=== PATIENT | male | born 1935 | race Caucasian/White ===

== ENCOUNTER 2023-01-17 09:12 | Emergency (ER) | payer MEDICARE, OTHER ==
[2023-01-17 11:08] LABS: SARS-CoV-2 NAA Rapid Test DETECTED (NotDetected)
== END 2023-01-17 11:20 | disposition home or self-care (01) ==
LOC: CSHERS 09:12
DX: U07.1 COVID-19 (principal); E78.00 Pure hypercholesterolemia, unspecified; I10 Essential (primary) hypertension
CPT/HCPCS: 0240U; 71045

== ENCOUNTER 2025-04-30 04:02 | Inpatient (IN) | payer OTHER ==
[2025-04-30 04:48] LABS: Troponin I 0.024 ng/mL (< 0.028)
[2025-04-30 05:05] LABS: Ovalocytes SLIGHT = 2-5 cells (100X) (0-1/hpf); Platelet Adequacy Comment Appears Adequate; Poikilocytosis MARKED = >30 cells (100X) (0-5/hpf)
[2025-04-30 05:06] LABS: #Basophils Less than 0.03 10x3/uL (0.0-0.2); #Eosinophils 0.15 10x3/uL (0.0-0.5); #Monocytes 1.19 10x3/uL (0.0-1.1); #Neutrophils 5.07 10x3/uL (1.5-8.4); %Basophils 0.1 % (0.0-2.0); %Eosinophils 2.1 % (0.0-6.0); %Lymphocytes 11.6 % (18.0-47.0); %Monocytes 16.4 % (0.0-10.0); %Neutrophils 69.7 % (40.0-75.0); Hematocrit 28.1 % (38.8-50.0); Hemoglobin 9.3 g/dL (13.5-17.5); Mean Corpuscular Hemoglobin 33.1 pg (27.0-33.0); Mean Corpuscular Volume 100.0 fL (81.2-95.1); Red Blood Cell (RBC) Count 2.81 10x6/uL (4.32-5.72); White Blood Cell (WBC) Count 7.27 10x3/uL (3.5-10.5)
[2025-04-30 05:08] LABS: ALT (SGPT) 17 U/L (Less than 45); AST (SGOT) 33 U/L (11-34); Albumin 3.9 g/dL (3.1-4.5); Alkaline Phosphatase 59 U/L (40-110); Anion Gap 14 mmol/L (10-20); BUN (Urea Nitrogen) 18 mg/dL (8.4-25.7); Bilirubin, Total 1.1 mg/dL (0.3-1.2); Calc. Creatinine Clearance 0 mL/min (70-130); Calcium 9.3 mg/dL (7.8-10.44); Carbon Dioxide 22 mmol/L (23-31); Chloride 109 mmol/L (98-107); Globulin 2.9 g/dL (2.4-3.5); Glucose 132 mg/dL (83-110); Potassium 3.6 mmol/L (3.5-5.1); Sodium 141 mmol/L (136-145)
[2025-04-30] MEDS ORDERED: Cefepime 2 GM VIAL ONE (05:41)
[2025-04-30 05:52] LABS: Platelet Count 114 10x3/uL (130-400)
[2025-04-30 05:56] LABS: Actual Bicarbonate (HCO3v) 22.3 mEq/L (22-28); Analyzer IN Cardio CS ER; Base Excess -0.9 mEq/L (-2 - +2); Calcium, Ionized (venous) 1.12 mmol/L (1.16-1.32); Chloride (VBG) 108 mmol/L (98-106); Hematocrit-VBG 30 % (42.0-52.0); Hemoglobin (Hb) 10.1 g/dL (12.6-17.4); Potassium (VBG) 3.52 mmol/L (3.70-5.30); Puncture Site Other Site; RapidComm Collect By Lab; Sodium 139 mmol/L (133-146)
[2025-04-30] MEDS ORDERED: Senokot S 8.6-50 MG TAB PO PRN (07:53)
[2025-04-30] MEDS ORDERED: Furosemide 20 MG TAB PO SCH (09:00)
[2025-04-30] MEDS: Azithromycin 250 MG TAB PO SCH (09:22)
[2025-04-30] MEDS: Aspirin 81 mg Enteric Coated Tablet PO SCH (09:45)
[2025-04-30] MEDS: Carvedilol 3.125 MG TAB PO SCH (09:45)
[2025-04-30] MEDS: Furosemide 40 MG (4 mL) VIAL SLOW IVP SCH (09:45)
[2025-04-30] MEDS: Apixaban 2.5 MG TAB PO SCH (09:45)
[2025-04-30] MEDS: cefTRIAXone\\ROCEPHIN 1 GM in Sodium Chloride 0.9% 100 ML IVPB SCH (10:00)
[2025-04-30] MEDS ORDERED: cefTRIAXone (ROCEPHIN) 1 GM VIAL ONE (10:05)
[2025-04-30] MEDS ORDERED: Azithromycin 250 MG TAB ONE (10:08)
[2025-04-30] MEDS ORDERED: Furosemide 40 MG (4 mL) VIAL ONE (10:08)
[2025-04-30] MEDS ORDERED: Aspirin Chewable 81 MG TAB ONE (10:09)
[2025-04-30] MEDS ORDERED: Apixaban 5 MG TAB ONE (10:09)
[2025-04-30] MEDS ORDERED: Carvedilol 6.25 MG TAB ONE (10:15)
[2025-04-30 14:13] VITALS: BMI 20.7
[2025-04-30 17:25] LABS: Glucose, Urine (Dipstick) Normal (Negative); Leukocyte Negative (Negative); Protein, Urine (Dipstick) 30 mg/dl (Neg-Trace); Specific Gravity, Urine 1.015 (1.005-1.030)
[2025-04-30 17:35] LABS: Bacteria/HPF None Seen HPF (None Seen); RBC/HPF None Seen HPF (0-3); WBC/HPF None Seen HPF (0-3)
[2025-04-30] MEDS: Rosuvastatin 20 MG TAB PO SCH (20:48)
[2025-05-01] MEDS: Acetaminophen 325 MG TAB PO PRN (00:11)
[2025-05-01] MEDS: Melatonin 3 MG TAB PO PRN (00:12)
[2025-05-01 05:32] LABS: Albumin 3.4 g/dL (3.1-4.5); Anion Gap 15 mmol/L (10-20); BUN (Urea Nitrogen) 18 mg/dL (8.4-25.7); BUN/Creatinine Ratio 20.69; Calc. Creatinine Clearance 51 mL/min (70-130); Calcium 8.9 mg/dL (7.8-10.44); Carbon Dioxide 22 mmol/L (23-31); Chloride 109 mmol/L (98-107); Glucose 107 mg/dL (83-110); Potassium 3.2 mmol/L (3.5-5.1); Sodium 143 mmol/L (136-145)
[2025-05-01 05:35] LABS: Platelet Count 109 10x3/uL (150-450)
[2025-05-01 05:36] LABS: #Basophils 0.03 10x3/uL (0.0-0.2); #Eosinophils 0.09 10x3/uL (0.0-0.5); #Monocytes 0.92 10x3/uL (0.0-1.1); #Neutrophils 3.92 10x3/uL (1.5-8.4); %Basophils 0.5 % (0.0-2.0); %Eosinophils 1.5 % (0.0-6.0); %Lymphocytes 14.6 % (18.0-47.0); %Monocytes 15.8 % (0.0-10.0); %Neutrophils 67.3 % (40.0-75.0); Hematocrit 26.2 % (38.8-50.0); Hemoglobin 8.8 g/dL (13.5-17.5); Mean Corpuscular Hemoglobin 33.1 pg (27.0-33.0); Mean Corpuscular Volume 98.5 fL (81.2-95.1); Red Blood Cell (RBC) Count 2.66 10x6/uL (4.32-5.72); White Blood Cell (WBC) Count 5.83 10x3/uL (3.5-10.5)
[2025-05-01] MEDS ORDERED: Electrolyte Replacement Protocol 1 EACH FS PRN (09:30)
[2025-05-01] MEDS: Furosemide 20 MG TAB PO SCH (10:09)
[2025-05-01 16:45] LABS: Magnesium 2.2 mg/dL (1.6-2.6); Potassium 3.8 mmol/L (3.5-5.1)
[2025-05-01] MEDS: Sacubitril 49 MG/Valsartan 51 MG TABLET PO SCH (21:35)
[2025-05-01] MEDS: Ezetimibe 10 MG TAB PO SCH (21:35)
[2025-05-02] MEDS: Allopurinol 300 MG TAB PO SCH (09:30)
[2025-05-03 07:47] LABS: Anion Gap 12 mmol/L (10-20); BUN (Urea Nitrogen) 19 mg/dL (8.4-25.7); Calc. Creatinine Clearance 51 mL/min (70-130); Calcium 8.9 mg/dL (7.8-10.44); Carbon Dioxide 26 mmol/L (23-31); Chloride 108 mmol/L (98-107); Glucose 120 mg/dL (83-110); Potassium 3.5 mmol/L (3.5-5.1); Sodium 142 mmol/L (136-145)
[2025-05-03 08:01] LABS: #Basophils 0.03 10x3/uL (0.0-0.2); #Eosinophils 0.18 10x3/uL (0.0-0.5); #Monocytes 0.97 10x3/uL (0.0-1.1); #Neutrophils 4.28 10x3/uL (1.5-8.4); %Basophils 0.5 % (0.0-2.0); %Eosinophils 2.8 % (0.0-6.0); %Lymphocytes 16.1 % (18.0-47.0); %Monocytes 14.9 % (0.0-10.0); %Neutrophils 65.5 % (40.0-75.0); Hematocrit 27.0 % (38.8-50.0); Hemoglobin 8.9 g/dL (13.5-17.5); Mean Corpuscular Hemoglobin 32.5 pg (27.0-33.0); Mean Corpuscular Volume 98.5 fL (81.2-95.1); Platelet Count 137 10x3/uL (150-450); Red Blood Cell (RBC) Count 2.74 10x6/uL (4.32-5.72); White Blood Cell (WBC) Count 6.52 10x3/uL (3.5-10.5)
[2025-05-03] MEDS ORDERED: Potassium Bicarbonate/Cit Ac 20 MEQ TAB PO SCH (10:00)
[2025-05-03] MEDS: Potassium Chloride 20 MEQ in Premix 1 BAG IVPB SCH (11:01)
[2025-05-03 16:26] LABS: Potassium 3.8 mmol/L (3.5-5.1)
[2025-05-04 05:58] LABS: #Basophils 0.03 10x3/uL (0.0-0.2); #Eosinophils 0.22 10x3/uL (0.0-0.5); #Monocytes 0.74 10x3/uL (0.0-1.1); #Neutrophils 2.93 10x3/uL (1.5-8.4); %Basophils 0.6 % (0.0-2.0); %Eosinophils 4.5 % (0.0-6.0); %Lymphocytes 19.8 % (18.0-47.0); %Monocytes 15.1 % (0.0-10.0); %Neutrophils 59.8 % (40.0-75.0); Hematocrit 27.6 % (38.8-50.0); Hemoglobin 9.0 g/dL (13.5-17.5); Mean Corpuscular Hemoglobin 31.9 pg (27.0-33.0); Mean Corpuscular Volume 97.9 fL (81.2-95.1); Platelet Count 129 10x3/uL (150-450); Red Blood Cell (RBC) Count 2.82 10x6/uL (4.32-5.72); White Blood Cell (WBC) Count 4.90 10x3/uL (3.5-10.5)
[2025-05-04 06:13] LABS: Anion Gap 10 mmol/L (10-20); BUN (Urea Nitrogen) 13 mg/dL (8.4-25.7); Calc. Creatinine Clearance 53 mL/min (70-130); Calcium 8.9 mg/dL (7.8-10.44); Carbon Dioxide 25 mmol/L (23-31); Chloride 109 mmol/L (98-107); Glucose 102 mg/dL (83-110); Magnesium 2.1 mg/dL (1.6-2.6); Potassium 3.5 mmol/L (3.5-5.1); Sodium 140 mmol/L (136-145)
[2025-05-04] MEDS: Aspirin Chewable 81 MG TAB PO SCH (08:41)
[2025-05-04] MEDS: Potassium Chloride 20 MEQ in Premix 1 BAG IVPB SCH (10:08)
[2025-05-05 05:42] LABS: #Basophils 0.03 10x3/uL (0.0-0.2); #Eosinophils 0.25 10x3/uL (0.0-0.5); #Monocytes 0.73 10x3/uL (0.0-1.1); #Neutrophils 3.76 10x3/uL (1.5-8.4); %Basophils 0.5 % (0.0-2.0); %Eosinophils 4.3 % (0.0-6.0); %Lymphocytes 17.7 % (18.0-47.0); %Monocytes 12.5 % (0.0-10.0); %Neutrophils 64.5 % (40.0-75.0); Hematocrit 27.6 % (38.8-50.0); Hemoglobin 9.3 g/dL (13.5-17.5); Mean Corpuscular Hemoglobin 32.6 pg (27.0-33.0); Mean Corpuscular Volume 96.8 fL (81.2-95.1); Platelet Count 137 10x3/uL (150-450); Red Blood Cell (RBC) Count 2.85 10x6/uL (4.32-5.72); White Blood Cell (WBC) Count 5.83 10x3/uL (3.5-10.5)
[2025-05-05 05:59] LABS: Anion Gap 10 mmol/L (10-20); BUN (Urea Nitrogen) 13 mg/dL (8.4-25.7); Calc. Creatinine Clearance 60 mL/min (70-130); Calcium 8.9 mg/dL (7.8-10.44); Carbon Dioxide 23 mmol/L (23-31); Chloride 108 mmol/L (98-107); Glucose 101 mg/dL (83-110); Magnesium 2.1 mg/dL (1.6-2.6); Potassium 3.6 mmol/L (3.5-5.1); Sodium 137 mmol/L (136-145)
[2025-05-05 16:28] VITALS: BP 129/73; TEMP 98.7
== END 2025-05-05 16:35 | disposition home or self-care (01) | DRG 193 ==
LOC: CSHERS 04:02 → CSHERHOLD 07:42 → CSHICU 13:58 → CSHTELE 19:28
PROVIDERS: ADMIT Student in an Organized Health Care Education/Training Program; ATTEND Physician Assistant
DX: J18.9 Pneumonia, unspecified organism (principal); I50.23 Acute on chronic systolic (congestive) heart failure; J96.01 Acute respiratory failure with hypoxia; I25.10 Atherosclerotic heart disease of native coronary artery without angina pectoris; Z95.1 Presence of aortocoronary bypass graft; I48.91 Unspecified atrial fibrillation; Z95.0 Presence of cardiac pacemaker; Z95.2 Presence of prosthetic heart valve; Z91.148 Patient's other noncompliance with medication regimen for other reason; I11.0 Hypertensive heart disease with heart failure; D69.6 Thrombocytopenia, unspecified; R13.12 Dysphagia, oropharyngeal phase; Z95.5 Presence of coronary angioplasty implant and graft; M10.9 Gout, unspecified; E78.00 Pure hypercholesterolemia, unspecified; Z79.01 Long term (current) use of anticoagulants; Z79.899 Other long term (current) drug therapy; Z79.82 Long term (current) use of aspirin
CPT/HCPCS: 36415; 71045; 80048; 80053; 80069; 81001; 82805; 83036; 83605; 83735; 83880; 84484; 85025; 87040; 87428; 93005; 93306; 94640; 94760; 94762; 96374; J0692; J0696; J1940; J3480; J7030